=== PATIENT | male | born 1960 | race Caucasian/White ===

== ENCOUNTER 2018-10-02 03:50 | Observation (INO) | payer MEDICAID ==
[~2018-10-02] VITALS: Ht 180.3 cm; Wt 73.5 kg
[2018-10-02] MEDS ORDERED: MORPHINE SULFATE 4 MG/ML, 1ML ONE (04:46)
[2018-10-02] MEDS ORDERED: ONDANSETRON 2MG/ML, 2ML ONE (04:46)
[2018-10-02] MEDS ORDERED: FAMOTIDINE 20 MG/2 ML ONE (04:46)
[2018-10-02] MEDS ORDERED: ONDANSETRON 2MG/ML, 2ML IVPush ONE (05:00)
[2018-10-02] MEDS ORDERED: FAMOTIDINE 20 MG/2 ML IVP ONE (05:00)
[2018-10-02] MEDS ORDERED: MORPHINE SULFATE 4 MG/ML, 1ML IVPush PRN ×2 (05:00→09:30)
[2018-10-02] MEDS ORDERED: SODIUM CHLORIDE FLUSH 10ML SYR IVF ONE (05:00)
[2018-10-02 05:06] LABS: BASOPHILS # (AUTO) 0.03 x10^3/uL (0-0.1); BASOPHILS % (AUTO) 0 % (0-1); EOSINOPHILS # (AUTO) 0.03 x10^3/uL (0-0.4); EOSINOPHILS % (AUTO) 0 % (1-7); LYMPHOCYTES # (AUTO) 0.77 x10^3/uL (1-3.4); LYMPHOCYTES % (AUTO) 5 % (22-44); MD NO; MEAN CORPUSCULAR HEMOGLOBIN 30.5 pg (27.5-34.5); MEAN CORPUSCULAR HGB CONC 34.1 g/dL (33.2-36.2); MEAN CORPUSCULAR VOLUME 89.6 fL (81-97); MEAN PLATELET VOLUME 7.9 fL (7.4-10.4); MONOCYTES # (AUTO) 0.39 x10^3/uL (0.2-0.8); MONOCYTES % (AUTO) 3 % (2-9); NEUTROPHILS # (AUTO) 12.87 x10^3/uL (1.8-6.8); NEUTROPHILS % (AUTO) 91 % (42-75); PLATELET COUNT 381 x10^3/uL (130-400); RED BLOOD COUNT 5.02 x10^6/uL (4.38-5.82); RED CELL DISTRIBUTION WIDTH 15.4 % (9.4-14.8)
--- NOTE | 2018-10-02 05:13 | NUR ---
PT IN HOSPITAL GOWN, IV PLACED. PT MEDICATED PER EMAR FOR PAIN. PT ON VITALS MONITORS. PT GIVEN WARM BLANKETS. PT AWARE URINE SAMPLE IS NEEDED. URINAL AT BEDSIDE. BILAT BEDRAILS UP. CALL LIGHT WITHIN REACH. LABS HAVE BEEN DRAWN. PT AWAITING CT.
[2018-10-02 05:17] LABS: ALANINE AMINOTRANSFERASE 74 U/L (12-78); ALBUMIN 4.2 g/dL (3.4-5.0); ANION GAP 8 mmol/L (5-15); CALCIUM 9.4 mg/dL (8.5-10.1); CHLORIDE 106 mmol/L (98-107); CREATININE 1.36 mg/dL (0.7-1.3)
[2018-10-02 05:24] LABS: ALKALINE PHOSPHATASE 81 U/L (45-117); BILIRUBIN,TOTAL 0.5 mg/dL (0.2-1.0); TOTAL PROTEIN 7.9 g/dL (6.4-8.2)
[2018-10-02] MEDS ORDERED: OMNIPAQUE 350 MG/ML, 100ML BOTTLE ONE (05:51)
--- NOTE | 2018-10-02 06:05 | NUR ---
PT RESTING CALMLY IN BED. NO STATED NEEDS NOR C/O PAIN AT THIS TIME. WILL CONTINUE TO MONITOR.
--- NOTE | 2018-10-02 06:57 | NUR ---
REPORT TO JESENIA WEST. NO UA YET FROM PT. ERP STATED OK IF PT DOES NOT GIVE ONE.
[2018-10-02] MEDS ORDERED: CEFOTETAN PMX 2GM/50ML 50 ML IV ONE (07:00)
--- NOTE | 2018-10-02 07:16 | NUR ---
LAST ATE OR DRANK ANYTHING AT 1800 YESTERDAY
[2018-10-02] MEDS ORDERED: PROPOFOL 10 MG/ML, 20ML ONE ×2 (07:59→08:00)
--- NOTE | 2018-10-02 07:59 | NUR ---
SBAR TO RODRIGO WEST IN OR VIA TELEPHONE
[2018-10-02 08:01] LABS: CULTURE INDICATED? NO; MICROSCOPIC NOT IND
[2018-10-02] MEDS ORDERED: PHENYLEPHRINE 10 MG/ML ONE (08:04)
[2018-10-02] MEDS ORDERED: ROCURONIUM 10MG/ML,5ML ONE (08:04)
--- NOTE | 2018-10-02 08:08 | NUR ---
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
[2018-10-02] MEDS ORDERED: EPHEDRINE 50 MG/ML, 1ML ONE (08:10)
[2018-10-02] MEDS ORDERED: LIDOCAINE-MPF 2% ,5ML ONE (08:11)
[2018-10-02 08:34] VITALS: BP 98/57
[2018-10-02] MEDS ORDERED: NONE PER PT (08:41)
[2018-10-02 09:07] LABS: AMPHETAMINE SCREEN, URINE Positive (Negative); BARBITURATE SCREEN, URINE Negative (Negative); BENZODIAZEPINE SCREEN, URINE Negative (Negative); CANNABINOID SCREEN, URINE Positive (Negative); COCAINE SCREEN, URINE Negative (Negative); METHADONE SCREEN, URINE Negative (Negative); OPIATE SCREEN, URINE Positive (Negative)
[2018-10-02] MEDS ORDERED: BUPIVACAINE/PF 0.25% ONE (09:16)
[2018-10-02] MEDS ORDERED: EPINEPHRINE 1 MG/ML, 1ML ONE ×2 (09:16→10:30)
[2018-10-02] MEDS ORDERED: MEPERIDINE/PF 25MG/0.5ML IVPush PRN (09:30)
[2018-10-02] MEDS ORDERED: OXYcodone 5 MG/5 ML ORAL.SOL UDC PO PRN ×2 (09:30→13:30)
[2018-10-02] MEDS ORDERED: FENTANYL PF 100 MCG/2ML IV PRN (09:30)
[2018-10-02] MEDS ORDERED: HYDROcodone/APAP 7.5-325MG/15ML UDC PO PRN (09:30)
[2018-10-02] MEDS ORDERED: ACETAMINOPHEN 325 MG TABLET PO PRN ×2 (09:30→13:30)
[2018-10-02] MEDS ORDERED: ETOMIDATE 40 MG/20 ML ONE (09:42)
[2018-10-02] MEDS ORDERED: SUGAMMADEX 200 MG/2 ML IVPush ONE (10:10)
[2018-10-02] MEDS ORDERED: FENTANYL PF 100 MCG/2ML ONE (10:30)
[2018-10-02] MEDS ORDERED: HYDROmorphone 2 MG/ML, 1ML ONE (10:59)
[2018-10-02] MEDS ORDERED: OXYcodone 5 MG/5 ML ORAL.SOL UDC ONE (10:59)
[2018-10-02] MEDS: HYDROmorphone 2 MG/ML, 1ML IVPush PRN ×4 (11:06→11:35)
[2018-10-02] MEDS ORDERED: ACETAMINOPHEN 650 MG/20.3 ML UDC ONE (11:38)
[2018-10-02] MEDS ORDERED: SODIUM CHLORIDE 0.9% 1,000 ML IV SCH (13:04)
[2018-10-02] MEDS ORDERED: PROMETHAZINE 25 MG/ML, 1ML IM PRN (13:30)
[2018-10-02] MEDS ORDERED: OXYcodone IR 5MG TABLET PO PRN (13:30)
[2018-10-02] MEDS ORDERED: hydrALAzine 20 MG/ML, 1ML IVPush PRN (13:30)
[2018-10-02] MEDS ORDERED: ACETAMINOPHEN 500 MG TABLET PO SCH (13:30)
[2018-10-02] MEDS ORDERED: ONDANSETRON ODT 4 MG PO PRN (13:30)
[2018-10-02] MEDS ORDERED: ONDANSETRON 2MG/ML, 2ML IVPush PRN (13:30)
[2018-10-02] MEDS ORDERED: morphine SULFATE 10 MG/ML, 1ML IVPush PRN (13:30)
[2018-10-02 13:43] VITALS: BP 85/49
[2018-10-02 14:04] LABS: FREE T4 (FREE THYROXINE) 0.54 ng/dL (0.76-1.46); THYROID STIMULATING HORMONE 78.1 mIU/L (0.358-3.740)
[2018-10-02] MEDS ORDERED: VISIPAQUE 320MG/ML, 50ML BOTTLE ONE (14:34)
[2018-10-02 14:43] LABS: HEMOGLOBIN A1C 5.6 % (4.2-6.3)
[2018-10-02] MEDS: POTASSIUM CHLORIDE 20 MEQ in D5%-0.45% NACL 1,000 ML IV SCH (14:43)
[2018-10-02] MEDS: KETOROLAC 30 MG/1 ML IV PRN ×2 (14:46→21:08)
[2018-10-02 20:34] VITALS: BP 84/57
[2018-10-02] MEDS ORDERED: SODIUM CHLORIDE 0.9%, 500ML IVBOLUS ONE (21:30)
[2018-10-02 22:47] VITALS: BP 103/71
[2018-10-02] MEDS: ACETAMINOPHEN 650 MG/20.3 ML UDC GT SCH (23:12)
[2018-10-02 23:18] VITALS: BP 113/78
[2018-10-03] MEDS ORDERED: OXYcodone 5 MG/5 ML ORAL.SOL UDC GT PRN (01:30)
[2018-10-03 03:41] VITALS: BP_SYST 84; BP_SYST 93; BP_DIAS 53; BP_DIAS 64
[2018-10-03] MEDS: POTASSIUM CHLORIDE 20 MEQ in D5%-0.45% NACL 1,000 ML IV SCH (04:28)
[2018-10-03 05:54] LABS: CHLORIDE 106 mmol/L (98-107)
[2018-10-03] MEDS: ACETAMINOPHEN 650 MG/20.3 ML UDC GT SCH ×2 (05:55→10:47)
[2018-10-03 05:59] LABS: MEAN CORPUSCULAR HEMOGLOBIN 29.9 pg (27.5-34.5); MEAN CORPUSCULAR VOLUME 90.4 fL (81-97); MEAN PLATELET VOLUME 8.3 fL (7.4-10.4); PLATELET COUNT 253 x10^3/uL (130-400); RED BLOOD COUNT 3.99 x10^6/uL (4.38-5.82); RED CELL DISTRIBUTION WIDTH 15.1 % (9.4-14.8)
[2018-10-03 06:02] LABS: ALANINE AMINOTRANSFERASE 59 U/L (12-78); ALBUMIN 2.9 g/dL (3.4-5.0); ALKALINE PHOSPHATASE 63 U/L (45-117); ANION GAP 6 mmol/L (5-15); BILIRUBIN,TOTAL 0.9 mg/dL (0.2-1.0); CALCIUM 7.8 mg/dL (8.5-10.1); CHOL/HDL RATIO 2.1; CHOLESTEROL, TOTAL 147 mg/dL (140-239); CREATININE 1.12 mg/dL (0.7-1.3); HDL CHOL % 47 % (26-37); HDL CHOLESTEROL (DIRECT) 69 mg/dL (40-60); LDL CHOLESTEROL,CALCULATED 60 mg/dL (54-169); LDL/HDL RATIO 0.9 (0.5-3.0); TOTAL PROTEIN 6.2 g/dL (6.4-8.2); TRIGLYCERIDES 88 mg/dL (50-200); VLDL CHOLESTEROL 18 mg/dL (0-25)
[2018-10-03 06:17] LABS: BASOPHILS # (AUTO) 0.01 x10^3/uL (0-0.1); BASOPHILS % (AUTO) 0 % (0-1); EOSINOPHILS # (AUTO) 0.04 x10^3/uL (0-0.4); EOSINOPHILS % (AUTO) 1 % (1-7); LYMPHOCYTES # (AUTO) 0.43 x10^3/uL (1-3.4); LYMPHOCYTES % (AUTO) 6 % (22-44); MD SCAN; MONOCYTES # (AUTO) 0.23 x10^3/uL (0.2-0.8); MONOCYTES % (AUTO) 3 % (2-9); NEUTROPHILS # (AUTO) 7.01 x10^3/uL (1.8-6.8); NEUTROPHILS % (AUTO) 91 % (42-75)
[2018-10-03 07:49] VITALS: BP 108/73
[2018-10-03] MEDS ORDERED: HEPARIN 5,000 UNITS/ML, 1ML SQ SCH (08:00)
[2018-10-03] MEDS ORDERED: LEVOTHYROXINE 100 MCG INJ IVPush ONE (13:00)
[2018-10-03] MEDS ORDERED: ACET650S21 GT (13:15)
[2018-10-03] MEDS ORDERED: LEVO75TA PO (13:15)
[2018-10-03 13:16] VITALS: BP 103/72
== END 2018-10-03 15:41 | disposition home or self-care (01) ==
LOC: ED 07:04 → INTOOBSV 07:12 → EDIP 07:12 → 4NOR 12:53 → DCLOUNGE 10-03 15:35
PROVIDERS: ADMIT Surgery; ATTEND Surgery
DX: K35.30 Acute appendicitis with localized peritonitis, without perforation or gangrene (principal); E03.9 Hypothyroidism, unspecified; F12.10 Cannabis abuse, uncomplicated; F15.10 Other stimulant abuse, uncomplicated; K65.0 Generalized (acute) peritonitis; K94.23 Gastrostomy malfunction; R13.10 Dysphagia, unspecified; Z59.0 Homelessness; Z85.810 Personal history of malignant neoplasm of tongue; Z92.21 Personal history of antineoplastic chemotherapy; Z92.3 Personal history of irradiation
CPT/HCPCS: 36415; 44970; 49450; 74177; 75984; 80053; 80061; 80307; 81003; 83036; 83605; 83690; 83735; 84145; 84439; 84443; 85025; 87040; 88304; 92610; 93005; 96365; 96372; 96375; 96376; 99284; C1729; C1769; G0378; J0171; J1170; J1644; J1885; J2370; J2405; J2704; J3010; J3480; J3490; J7040; Q9967

== ENCOUNTER 2018-10-05 03:41 | Emergency (ER) | payer MEDICAID ==
[~2018-10-05] VITALS: Ht 180.3 cm; Wt 75.4 kg
[~2018-10-05 03:41] MED LIST: ACET650S21 GT; LEVO75TA PO; NONE PER PT
[2018-10-05 03:43] VITALS: BP 113/81
--- NOTE | 2018-10-05 03:55 | NUR ---
PT RESTING IN [facility] AT THIS TIME;
--- NOTE | 2018-10-05 05:05 | NUR ---
pt d/c with d/c summary. all questions answered. pt ambulates to registration desk with steady gait for d/c home. pt denies any other needs pertaining to this visit.
== END 2018-10-05 05:08 | disposition home or self-care (01) ==
LOC: ED 04:19
DX: N43.2 Other hydrocele (principal); N50.812 Left testicular pain
CPT/HCPCS: 76870; 99284